=== PATIENT | male | born 1955 | race Caucasian/White ===

== ENCOUNTER 2016-09-11 21:40 | Emergency (ER) | payer OTHER ==
[2016-09-11 22:13] LABS: Hematocrit 46.6 % (42.0-52.0); Hemoglobin 16.2 gm/dL (13.5-18.0); Mean Cell Volume 83.5 fl (78-100); Mean Corpuscular Hgb Conc 34.8 g/dl (32-36); Mean Platelet Volume 10.7 fl (6.0-9.5); Neutrophil # 3.2 K/mm3 (1.3-6.0); Neutrophil % 48.9 % (42-75.0); Platelet Count 218 K/mm3 (150-450); Red Blood Count 5.58 M/mm3 (4.7-6.0); Red Cell Distribution Width 12.3 % (11.5-14.0); White Blood Count 6.6 K/mm3 (4.0-10.5)
--- OUTSIDE RECORDS SUMMARY | 2016-09-11 22:26 | XMS REPORT | Continuity of Care Document ---
:1955 Author Organization [facility] ([facility]) Address [address] [place] [address] Phone [phone] Care Team Providers Name Role Phone Unavailable Primary Care Provider Unavailable Source Comments This disclosure is being made pursuant to the Care Everywhere program, applicable federal and state laws, and may not contain all informaitonavailable regarding this patient.[facility] ([facility]) Active Allergies and Adverse Reactions Not on File Current Medications Not on file Active Problems Not on file Social History Tobacco Use Types Packs/Day Years Used Date Never Assessed Plan of Care Health Maintenance Due Date Last Done Comments HCV Screening 1955 Hepatitis B Vaccine (1 of 3 - Primary Series) 1955 Tdap Vaccine 01/16/1968 Lipid Disorder Screening 1975 MMR Vaccine 1975 Td Vaccine 1975 Colonoscopy 2007 Prostate Cancer Screening 2007 Influenza Vaccine: Seasonal (#1) 01/12/2016 Results from Last 3 Months Not on file
[2016-09-11 22:30] LABS: INR 0.96 INR (0.90-1.10); Partial Thrombolplastin Time 25.8 Seconds (24-32)
[2016-09-11 22:31] LABS: ALT 37 U/L (19-67); AST 19 U/L (0-48); Albumin * 4.2 gm/dl (3.4-5.0); Alkaline Phosphatase * 71 U/L (50-170); Anion Gap 14.1 mmol/L (6.8-13.8); BUN/Creatinine Ratio 16.3 (9.0-21.6); Bilirubin, Total 0.4 mg/dL (0.0-1.1); Blood Urea Nitrogen 20 mg/dL (6-23); Ca. Corrected For Albumin 8.8 mg/dL (8.4-10.2); Calcium * 9.3 mg/dL (7.9-10.9); Carbon Dioxide 28.5 mmol/L (24-32.6); Chloride 102 mmol/L (97-106); Glucose * 107 mg/dL (70-110); Potassium 3.6 mmol/L (3.4-4.6); Sodium 141 mmol/L (132-142); Total Protein 7.7 gm/dL (6.2-8.2); Troponin I Less than 0.017 ng/ml (0.00-0.10)
[2016-09-11] MEDS ORDERED: ASPIRIN 81 MG TAB.CHEW PO ONE (22:32)
[2016-09-11] MEDS ORDERED: ASPIRIN 81 MG TAB.CHEW ONE (22:35)
--- NOTE | 2016-09-11 22:41 | ERNOTE ---
Chest Pain/Cardiac HPI Date of Service: 09/11/16 Chief Complaint: Chest Pain Time Seen by Provider: 09/11/16 22:19 Source: patient Immunizations: IMMUNIZATION HX Immunizations Up to Date Yes History of Influenza Vaccine No Hx Pneumococcal Vaccination No Allergies/Adverse Reactions: Allergies No Known Allergies Allergy (Verified 09/11/16 21:54) Home Medications: HOME MEDICATIONS ALPRAZolam [Xanax] 0.5 mg PO TID PRN 08/19/15 [Last Taken Unknown] Aspirin 81 mg PO DAILY 08/19/15 [Last Taken Unknown] Atorvastatin Calcium [Lipitor] 40 mg PO HS 08/19/15 [Last Taken Unknown] EPINEPHrine [Epipen] 0.3 mg IM PRN PRN 08/19/15 [Last Taken Unknown] Multivitamins [Multivitamin Anthony] 1 cap PO DAILY 08/19/15 [Last Taken Unknown] Triamterene/Hydrochlorothiazid [Dyazide 37.5/25] 1 cap PO DAILY 08/19/15 [Last Taken Unknown] amLODIPine BESYLATE [Norvasc] 5 mg PO DAILY 08/19/15 [Last Taken Unknown] Gabapentin 300 mg PO BID 09/11/16 [Last Taken Unknown] HYDROmorphone HCL [Dilaudid] 2 mg PO QID PRN 09/11/16 [Last Taken Unknown] Narrative: C/O CHEST PAIN FOR 1 WEEK. ALSO HAD C/O NECK PAIN AND SOB AND WAS SEEN [address] MARIN WHO PRESCRIBE HYDROMORPHONE AND JEREMÍAS. STATES THE CHEST PAIN IS LEFT CENTRAL CHEST, OFF AND ON FOR 1-2 MINS AT A TIME. NOT RELATED TO ANY SPEFIC ACTIVITY. NO RADIATION OF PAIN. SOMEWHAT WORSE WITH DEEP BREATH. NOT A CURRENT SMOKER( QUIT IN ) BUT DOES DRINK 3-4 BEERS AND MAYBE 1-2 WINEGLASSES/ DAY. DENIES DRUGS . NO KNOWN TRAUMA. HAS SOME ANXIETY ISSUES. NOT AWARE OF FAMILY HX. OF CAD BUT BROTHER HAD " SOME HEART PROBLEM". NO COUGHING. PAIN SOMEWHAT AGGRAVATED BY CHEST PALPATION. DOES TAKE ONE BABY ASA /DAY. NO PAST HX OF HEART PROBLEMS. Review of Systems - Review of Systems Constitutional: Present: See HPI Respiratory: Present: See HPI Cardiology: Present: See HPI Gastrointestinal/Abdominal: Present: no symptoms reported Genitourinary: Present: no symptoms reported Musculoskeletal: Present: neck pain Skin: Present: no symptoms reported Neurological: Present: no symptoms reported Endocrine: Present: no symptoms reported Hematologic/Lymphatic: Present: no symptoms reported Psych: Present: anxiety All Other Systems: All systems neg except as marked - Patient's Past Medical History Patient History - Medical: No pertinent hx, Anxiety, Depression, GERD Patient History - Cardiac/Respiratory: Hypertension Patient History - Cancer: Other Patient History - Surgical Procedures: Back Surgery, Cholecystectomy Patient History - Other: None - Social History Living Situations: home Abuse History: No History of abuse Psych History: No pertinent hx Smoking Status: Former smoker - QUIT 1982 Patient requests Smoking Cessation Consult: No Initiate information on Smoking Cessation: No Alcohol Use: other - DAILY , 3-4 BEERS & SOMETIMES 1-2 GLASSES OF WINE. Drug Use: none, marijuana - Immunizations Immunizations Up to Date: Yes Hx Pneumococcal Vaccination: No History of Influenza Vaccine: No Physical Exam - Physical Exam General Appearance: Present: wd/wn, alert, mild distress, anxious Neck: Present: normal inspection, nontender, other - OLD ANTERIOR CERVICAL SURGICAL SCAR. Respiratory: Present: no respiratory distress, normal breath sounds, no accessory muscle use, lungs clear, chest tenderness - MILD LEFT CENTRAL CHEST PAIN TO PALPATION. NO CREPITUS , NO RASH. Cardiovascular/Chest: Present: regular rate, rhythm, no murmur, normal peripheral pulses Peripheral Pulses: N=norm/S=strong/W=weak/B=bound/A=absent: Dorsalis-pedis (R): Normal, Dorsalis-pedis (L): Normal Gastrointestinal/Abdominal: Present: normal bowel sounds, nontender, nondistended, soft, no organomegaly Extremity Exam: Present: normal inspection, non-tender, normal range of motion, no edema Neurological Exam: Present: alert, oriented Skin Exam: Present: normal color ED Progress - Results and Orders Patient's Lab Results:: I have reviewed the patient's lab results. Results and Orders: ALL WNL. TROPONIN = 0.017, ABG AND REPEAT TROPONIN AND D DIMER ARE ALL NORMAL. THERE IS NO RISE IN THE TROPONIN. - Vital Signs Patient's Vital Signs:: I have reviewed the patient's vital signs. Vital Signs: Vital Signs 09/11/16 21:47 Temperature 37 C Pulse Rate 79 Respiratory 20 Rate Blood Pressure 200/108 O2 Sat by Pulse 99 Oximetry - EKG EKG: NSR EKG read: Interp. by me - X-Ray X-Ray #1 X-Ray: chest Interpretation: Interp. by me - NO ABNORMALITY OR CHANGE FROM LAST CHEST XR ON RECORD HERE. - Progress/Reassessment Chief Complaint: Chest Pain Departure - Departure Clinical Impression: Chest discomfort Disposition: Home Follow Up Needed Condition: Good Instructions: Chest Pain Observation, Chest Wall Pain, [id number] Additional Instructions: ALL YOUR TESTS WERE NORMAL TODAY. TRIAL OF IBUPROFEN OR ALEVE FOR THE CHEST WALL DISCOMFORT AND FOLLOW UP WITH YOUR FAMILY DOCTOR FOR RECHECK TO DETERMINE IF FURTHER EVALUATION IS NEEDED. CALL HIM ON TUESDAY TO MAKE ARRANGEMENTS. LET THEM KNOW YOU WERE SEEN HERE. Referrals: João Marin MD [Primary Care Provider] -
[2016-09-11] MEDS ORDERED: ACETAMINOPHEN 325 MG TABLET PO ONE (23:48)
[2016-09-11] MEDS ORDERED: ACETAMINOPHEN 325 MG TABLET ONE (23:50)
[2016-09-12 02:51] VITALS: BP 122/68
== END 2016-09-12 02:50 | disposition home or self-care (01) ==
LOC: ER 21:40
DX: R07.89 Other chest pain (principal); I10 Essential (primary) hypertension; K21.9 Gastro-esophageal reflux disease without esophagitis; F41.8 Other specified anxiety disorders